=== PATIENT | male | born 1945 | race Caucasian/White ===

== ENCOUNTER → 2018-06-12 | Outpatient (CLI) | payer MEDICARE ==
--- NOTE | 2018-06-12 15:08 | KCIC ---
EXAMINATION: Magnetic resonance imaging (MRI) of the lumbar spine without contrast 06/12/2018 12:30 PM HISTORY: Chronic lower back pain with radicular symptoms TECHNIQUE: Multiplanar multi-weighted MRI of the lumbar spine was performed without intravenous contrast using the standard lumbar spine protocol. Contrast information: None administered. COMPARISON: MRI lumbar spine August 03, 2012 FINDINGS: Alignment of the lumbar spine appears maintained. Vertebral body heights are maintained. Modic type II endplate degenerative changes are identified posteriorly at L3-L4. There is moderate disc height loss at L3-L4 mild disc height loss at L2-L3 and L4-L5. There is disc desiccation at all levels of the lumbar spine. Conus medullaris terminates at L1. Distal spinal cord signal intensity is normal in all sequences. There is no acute fracture. Modic type II endplate degenerative changes are identified anteriorly at L5-S1 with mild anterior marginal osteophytosis. Abdominal aorta is normal in caliber. No suspicious sacral abnormalities identified. No suspicious retroperitoneal abnormality is identified. There is no hydronephrosis. L1-L2: Mild disc bulge. No neuroforaminal or spinal canal stenosis. L2-L3: There is a moderate disc bulge with mild facet arthropathy and ligamentum flavum infolding. There is moderate bilateral neuroforaminal stenosis. Mild spinal canal stenosis. L3-L4: There is moderate disc bulge. There is moderate left and mild right facet arthropathy. There is deformity of the left lamina which may reflect prior laminectomy changes. There is moderate bilateral neuroforaminal stenosis. No significant spinal canal stenosis. L4-L5: There is mild disc bulge. There is moderate facet arthropathy. There is mild bilateral neuroforaminal stenosis. No residual spinal canal stenosis. Correlate with any laminectomy changes at this level. L5-S1: There is mild disc bulge with left central annular fissure. There is moderate facet arthropathy, right greater than left. There is no significant neuroforaminal or spinal canal stenosis. IMPRESSION: Mild to moderate degenerative changes of the lumbar spine, as described in detail above. Electronically signed by: Kat Deal MD (06/12/2018 3:05 PM) [email or web address]
== END | disposition home or self-care (01) ==
LOC: KCIC MRI 12:06
PROVIDERS: ATTEND Internal Medicine
DX: M47.816 Spondylosis without myelopathy or radiculopathy, lumbar region (principal); M48.061 Spinal stenosis, lumbar region without neurogenic claudication; M51.27 Other intervertebral disc displacement, lumbosacral region; M12.88 Other specific arthropathies, not elsewhere classified, other specified site; M43.8X6 Other specified deforming dorsopathies, lumbar region
CPT/HCPCS: 72148

== ENCOUNTER → 2018-07-24 | Outpatient (CLI) | payer MEDICARE ==
[~2018-07-24] MED LIST: CONTRAST GIVEN. MC PRN; IOHEXOL 180 MG/ML 10 ML VIAL. IJ ONE; IOHEXOL 180 MG/ML 10 ML VIAL. ONE; LIDOCAINE WITH 8.4% SOD BICARB 3 ML DISP.SYRIN. INJ ONE
[2018-07-24 09:20] VITALS: BP 139/88
[2018-07-24 09:35] VITALS: BP 124/71
[2018-07-24 09:50] VITALS: BP 117/64
[2018-07-24 10:05] VITALS: BP 121/86
[2018-07-24 10:08] VITALS: BP 139/88
--- NOTE | 2018-07-24 10:10 | NUR ---
Discharge Note: LURDES ZARCO Discharge instructions and discharge home medications reviewed with Patient and a copy given. All questions have been answered and understanding verbalized. The following instructions and handouts were given: Myelogram Clean dry dressing to back Patient discharged to home with via ambulatory MICHELLE RN
--- NOTE | 2018-07-24 11:17 | RAD ---
Lumbar myelogram, 07/24/2018: HISTORY: Back pain and left leg pain, spinal stenosis, spondylolisthesis Under local anesthesia, aseptic conditions and fluoroscopic guidance a lumbar puncture was performed at the upper L3 level utilizing a 25-gauge Liset spinal needle. Good clear CSF flow was obtained following which 14 cc of Omnipaque 180 was injected into the thecal sac. The spinal needle was then removed and appropriate digital imaging performed. 13 fluoroscopic spot images were recorded. 4.7 minutes of fluoroscopy time was utilized. The patient tolerated the procedure well and was sent to CT in good condition. Following findings were delineated on the myelogram: 1. There are moderate anterior extradural defects at L2-3 and L3-4 with a mild anterior extradural defect at L4-5. There is mild associated narrowing of the AP diameter of the thecal sac at the L2-3 level. 2. Upright lateral views demonstrate only slight anterolisthesis at L5-S1. The underlying central spinal canal is widely patent. No significant instability is seen with flexion and extension. 3. There is symmetric opacification of the nerve root sleeves in the lower lumbar spine. CT of the lumbar spine-post myelogram, 07/24/2018: Multidetector CT imaging was performed with multiplanar reconstructions produced. The following findings are delineated: 1. No significant posterior disc bulge or protrusion is seen at L1-2. The central spinal canal and neural foramina are well maintained. 2. At L2-3 there is a vacuum disc phenomena with moderate broad-based posterior disc bulging and posterior spurring. There is mild posterior ligamentous thickening due to facet joint arthropathy. The thecal sac measures 9-10 mm in AP diameter at the midline. There is mild inferior foraminal narrowing bilaterally. 3. At L3-4 there is a vacuum disc phenomena with disc space narrowing and moderate posterior marginal spurring. There are moderate degenerative changes involving the facet joints with a laminectomy defect on the left. The thecal sac measures 11-12 mm in AP diameter at the midline. A small bubble of gas along the right anterolateral lateral margin of the thecal sac is related to the degenerated disc. There is only mild inferior foraminal narrowing bilaterally. 4. At L4-5 there is mild posterior marginal spurring more so on the right with minimal posterior disc bulging. There are moderate hypertrophic degenerative changes involving the facet joints. The central spinal canal is widely patent. There is mild bilateral foraminal narrowing. 5. At L5-S1 there is only minimal posterior annular bulging. There are moderate to severe degenerative changes involving both facet joints with vacuum phenomena at both facet joints. There is no spondylolisthesis in the supine position. The central spinal canal is well-preserved. There is mild bilateral foraminal narrowing. IMPRESSION: 1. Mild to moderate multilevel degenerative change as described above. 2. Borderline narrowing of the central spinal canal at L2-3. 3. Slight anterolisthesis at L5-S1, only in the upright position. PQRS Compliance Statement: One or more of the following individualized dose reduction techniques were utilized for this examination: 1. Automated exposure control 2. Adjustment of the mA and/or kV according to patient size 3. Use of iterative reconstruction technique
== END | disposition home or self-care (01) ==
LOC: RAD 07:30
PROVIDERS: ATTEND Neurological Surgery
DX: M48.07 Spinal stenosis, lumbosacral region (principal); M47.817 Spondylosis without myelopathy or radiculopathy, lumbosacral region; M12.88 Other specific arthropathies, not elsewhere classified, other specified site; M43.16 Spondylolisthesis, lumbar region; I10 Essential (primary) hypertension; Z88.2 Allergy status to sulfonamides
CPT/HCPCS: 72132; 72265; Q9965

== ENCOUNTER → 2018-09-04 | Outpatient (CLI) | payer MEDICARE ==
[2018-07-24 10:05] VITALS: BP 121/86
[~2018-09-04] MED LIST changes: +BUPIVACAINE MPF 0.25% 10 ML VIAL. ONE; -CONTRAST GIVEN. MC PRN; +HYDR25TA PO; -IOHEXOL 180 MG/ML 10 ML VIAL. IJ ONE; -LIDOCAINE WITH 8.4% SOD BICARB 3 ML DISP.SYRIN. INJ ONE; +PRAZ1CAP2 PO; +TRAZ-86 PO; +VENL75TA PO; +methylPREDNISolone ACETATE 40 MG/ML VIAL. ONE
--- NOTE | 2018-09-04 23:23 | PAIN ---
DATE OF SERVICE: 09/04/2018 INITIAL CONSULTATION FOR PAIN CLINIC CHIEF COMPLAINT: Low back and bilateral lower extremity pain, left greater than right. SECONDARY COMPLAINT: Right shoulder pain. HISTORY OF PRESENT ILLNESS: This is a 73-year-old male who presents with history of pain in the low back, bilateral lower extremities and left greater than right in the posterior gluteus, posterior thigh across the low back as well as the calves, more on the left side than the right, also right shoulder pain, which he reports is his chief complaint today. It has been going on for about 6 weeks as well as his low back. The patient reports he does have a history of lumbar surgery in 2010, which did well initially, but the pain has been gradually returning now and over the past 2 months or so, it is becoming much more noticeable with walking, standing, changing positions, better with sitting or lying down, does not awaken him from sleep at night significantly. No loss of bowel or bladder control, but does affect his ability to walk at times. The patient reports no recent therapies or other treatments currently. He is doing some exercises, stretching with his back and his arms. Again, the patient's shoulder shows significant pain with weightbearing, raising his arm over his head that is on the right side, but without any loss of strength and it becomes aching and worse at night, especially. The patient reports the pain in the low back is sharp, stabbing, throbbing, shooting, radiating to the lower extremities. Also, pain in the right shoulder which is sharp and radiating to the right upper extremity, mostly in the lateral aspect of the upper arm to the elbow. The patient reports no loss of motor function, significant fatigability with both of the legs, more on the left than right, in the right shoulder. The patient rates his disability from 0-10, 10 being the worst, is a 7 with family and home responsibilities, recreation, social activity, and sexual behavior and self-care and 6 with life support activities. PAST MEDICAL HISTORY: Significant for hypertension, history of malaria, arthritis, PTSD. PREVIOUS SURGERY: Includes left ankle surgery, right ankle surgery, lumbar laminectomy, tonsillectomy. CURRENT MEDICATIONS: Include daily baby aspirin, cyclobenzaprine, diclofenac, hydrocortisone ointment, hydroxyzine, ibuprofen, lisinopril, omeprazole, oxycodone, rosuvastatin, prazosin, venlafaxine and trazodone. ALLERGIES: THE PATIENT IS ALLERGIC TO SULFA. FAMILY HISTORY: Unknown as the patient was adopted. SOCIAL HISTORY: The patient does not drink alcohol, does not smoke, does not use any illegal, illicit or recreational drugs. He is and lives with his spouse, has one child, living at home, lives locally in the [place], [place]. REVIEW OF SYSTEMS: The patient's review of systems is positive for those items mentioned in the history of present illness. All systems reviewed and otherwise negative. It is complete, full and well documented on the patient's chart. PHYSICAL EXAMINATION: VITAL SIGNS: The patient's blood pressure is 143/84, pulse 87, respirations 16, temperature is 98.0 degrees Fahrenheit, height is 6 feet 0 inches, weight is 286 pounds. GENERAL: The patient is awake, alert, oriented, appropriate, very pleasant demeanor. HEENT: Head shows normocephalic, atraumatic. Extraocular movements are intact and symmetrical. Oral cavity: Mucous membranes moist and pink. Dentition intact. NECK: Shows anterior throat supple without palpable lymphadenopathy noted. Swallow reflex symmetrical. CHEST: Shows normal on inspection. Breath sounds are clear to auscultation bilaterally. HEART: Shows S1, S2 clear. No murmurs auscultated. ABDOMEN: Soft, nontender, nondistended. No palpable organomegaly is noted. No rebound or guarding demonstrated. BACK: Shows spine grossly in the midline. Normal-appearing thoracic kyphosis and minor flattening of lumbar lordotic curvature. Well-healed surgical scar noted. Lumbar paraspinous muscle shows symmetrical on inspection, with palpation shows some mild tenderness in the middle and lower distribution of paraspinous muscle, but are symmetrical without evidence of atrophy, hypertrophy, no trigger points, no radiation of pain, no tenderness over the spinous processes, sacrum or sacroiliac regions. The patient has good rotational motion of lumbar spine, both laterally greater than 10 degrees right and left as well as extension greater than 10 degrees and forward flexion at 45 degrees without significant increase in pain. EXTREMITIES: The patient's lower extremities show deep tendon reflexes 1+ in the patellar and tendo-calcaneus tendons. Motor exam is strong with 5/5 on the right and 4/5 on the left with dorsiflexion, extension, quadriceps and hamstring flexion. Peripheral pulses are 1+ posterior tibia. No peripheral edema is noted. Upper extremities show deep tendon reflexes 2+ in the biceps and triceps tendons. Motor exam is strong with poultry eviscerator strength rated 5/5 as is bicep and tricep flexion. Shoulder shrug is strong and intact without loss of strength on resistance bilaterally. The patient does have some significant pain over the posterior aspect of the acromioclavicular joint on the right side only with very significant pain with palpation, even to moderate extent, less so on the anterior aspect of the joint. The left side is nontender. The patient has full rotational motion of the shoulder joint, both with active and passive rotation. No loss of strength with shoulder shrug and resistance. No loss of strength with abduction of shoulder to 90 degrees and resistance. SKIN: Shows warm and dry, good turgor. No edema. No sores, rashes or bruising throughout. IMPRESSION: 1. This is a 73-year-old male with long history of low back pain, bilateral lower extremity pain, worse on the left than right in a radicular pattern. 2. Right acromioclavicular shoulder joint pain. 3. Myelogram and MRI scan of lumbar spine as noted. 4. Plain films of right shoulder is noted. 5. Hypertension. 6. Arthritis. PLAN: Options were discussed with the patient including conservative medical management, physical therapy, interventional techniques and he would like to pursue interventional techniques. He would like to have shoulder addressed first as this is his chief complaint. We discussed a right acromioclavicular joint injection using fluoroscopic guidance. The patient would like to proceed with this. Risks were then discussed including, but not limited to bleeding, infection, possibility of intravascular injection sequelae, spread of local anesthetic and numbness, side effects of steroid medication, exposure to fluoroscopy as well as poor results regarding pain control. The patient understands and wished to proceed. The patient will return to clinic in approximately 2 weeks. I will plan on lumbar epidural steroid injection on his return. DIAGNOSIS: Right shoulder joint pain with primary osteoarthritis. PROCEDURE: Right acromioclavicular joint. PROCEDURE: Right acromioclavicular joint injection using C-arm fluoroscopic guidance under sterile prep and drape using local anesthetic. MEDICATION INJECTED: Total of 40 mg Depo-Medrol plus a total of 3 mL of 0.25% bupivacaine and 1.5 mL of contrast. CONDITION AT DISCHARGE: Stable. The patient tolerated procedure well, had no complications. FANNY ESPITIA MD DR: BELLA/eugenia JOB#: [id number] / [id number] DIXIE Monteiro
== END ==
LOC: PNCL 12:40
PROVIDERS: ATTEND Anesthesiology
DX: M19.011 Primary osteoarthritis, right shoulder (principal); I10 Essential (primary) hypertension; Z98.890 Other specified postprocedural states; Z79.82 Long term (current) use of aspirin; Z88.1 Allergy status to other antibiotic agents
CPT/HCPCS: 20610; 77002; J1030; J3490; Q9965; 20605

== ENCOUNTER → 2018-09-19 | Outpatient (CLI) | payer MEDICARE ==
[2018-07-24 10:05] VITALS: BP 121/86
[~2018-09-19] MED LIST changes: -methylPREDNISolone ACETATE 40 MG/ML VIAL. ONE; +methylPREDNISolone ACETATE 80 MG/ML VIAL. ONE
--- NOTE | 2018-09-19 15:52 | PAIN ---
DATE OF SERVICE: 09/19/2018 DIAGNOSES: 1. Right shoulder joint pain with osteoarthritis in the acromioclavicular joint. 2. Lumbar radiculopathy with lumbar degenerative disk disease and post-lumbar laminectomy syndrome. HISTORY OF PRESENT ILLNESS: The patient is a 73-year-old male who returns for followup status post right acromioclavicular joint injection with about 40% improvement. The patient reports it lasted for several weeks, but continues to be improved, but it was much higher level about 50-60% initially. The patient reports now is about 30-40% improvement overall, but still increased use of his right arm with weightbearing, range of motion and lifting items with the right arm more comfortably, still have some significant pain, however, the patient reports it is an 8 on a scale of 10 at its worst over the past week, 6 on average, 0 at its least and it is 6 today. The patient reports it is aching, sharp, dull, shooting at times in the right shoulder itself, also some low back pain and pain in the lower extremities as previously. The patient reports no new motor or sensory deficits. Does not awaken him from sleep at night. He has been doing most of his daily activities with improved comfort of the right shoulder. PHYSICAL EXAMINATION: VITAL SIGNS: The patient's blood pressure 138/83, pulse 90, respirations 18, temperature 97.6 degrees Fahrenheit, height 6 feet, weight is 287 pounds. GENERAL: The patient is awake, alert, oriented, appropriate, very pleasant demeanor. HEENT: Shows normocephalic, atraumatic. The patient is wearing eyeglasses. Extraocular movements are intact and symmetrical. Oral cavity: Mucous membranes moist and pink. Dentition is intact. NECK: Shows anterior throat supple without palpable lymphadenopathy noted. Swallow reflex symmetrical. CHEST: Shows normal on inspection. Breath sounds are clear to auscultation bilaterally. HEART: Shows S1, S2 clear. ABDOMEN: Soft, nontender, nondistended. No palpable organomegaly is noted. No rebound or guarding demonstrated. BACK: The patient's back shows spine grossly in the midline. Normal appearing thoracic kyphosis and minor flattening of lumbar lordotic curvature. The patient's right shoulder shows good range of motion with full range both abduction, anterior and posterior displacement as well as reaching well above his head with his right hand without pain reported. With palpation; however, significant pain in the acromioclavicular joint and the posterior aspect of the AC joint with palpation, less so on the anterior aspect, but also tender on the anterior acromioclavicular joint as well. This is worse with putting direct pressure posteriorly as well as inferiorly along the joint itself. EXTREMITIES: The patient's upper extremities show deep tendon reflexes 2+ in the biceps and triceps tendons. Motor exam is 5/5 with appian bpm developer strength, bicep and tricep flexion and symmetrical. Peripheral pulses are 2+ in the radial distribution. No peripheral edema is noted bilaterally as well. Options were discussed with the patient. The patient's old chart was reviewed as his current medication regimen updated. Current review of systems updated today as well. We will proceed with a right repeat acromioclavicular joint injection using C-arm fluoroscopic guidance. Risks were again discussed including, but not limited to bleeding, infection, possibility of intravascular injection sequelae, spread of local anesthetic and numbness, side effects of steroid medication, exposure to fluoroscopy and poor results regarding pain control. The patient understands and wished to proceed. The patient will return to clinic in approximately 2 weeks for followup. He was counseled on return appointment, activity level and side effects to be aware of. DIAGNOSIS: Right acromioclavicular shoulder joint pain with osteoarthritis, right acromioclavicular joint. PROCEDURE: Right acromioclavicular joint injection using C-arm fluoroscopic guidance under sterile prep and drape using C-arm fluoroscopic guidance 25-gauge needle. Total medications injected was 3 mL of 0.25% bupivacaine and 80 mg Depo-Medrol and 1.5 mL of contrast. CONDITION AT DISCHARGE: Stable. The patient tolerated procedure well, had no complications. FANNY ESPITIA MD DR: BELLA/eugenia JOB#: [id number] / [id number]
== END ==
LOC: PNCL 12:41
PROVIDERS: ATTEND Anesthesiology
DX: M19.011 Primary osteoarthritis, right shoulder (principal); M51.16 Intervertebral disc disorders with radiculopathy, lumbar region; M96.1 Postlaminectomy syndrome, not elsewhere classified
CPT/HCPCS: 20605; 77002; J1040; J3490; Q9965

== ENCOUNTER → 2018-10-10 | Outpatient (CLI) | payer MEDICARE ==
[2018-07-24 10:05] VITALS: BP 121/86
--- NOTE | 2018-10-10 22:04 | PAIN ---
DATE OF SERVICE: 10/10/2018 PROGRESS NOTE FOR PAIN CLINIC DIAGNOSES: 1. Lumbar radiculopathy with lumbar degenerative disk disease and lumbar post-laminectomy syndrome. 2. Right shoulder joint pain with primary osteoarthritis, right acromioclavicular joint. HISTORY OF PRESENT ILLNESS: The patient is a 73-year-old male who returns for followup status post right acromioclavicular joint injection x2. The patient reports he is doing better about 30% overall with pain in his right shoulder, still painful with holding items, lifting weight with the arm to the side of his body on the right side as well as weightbearing with raising the arm up over his level of the shoulder. The patient reports pain is 8 on a scale of 10 at its worst in the past week, 5 on average, 0 at its least and is 0 today. The patient reports it is aching, dull, shooting at times, also some pain in the base of the neck and shoulder on the right side. The patient is scheduled for MRI scan of the cervical spine tomorrow and we will ask that for those results to our office as well. The patient reports it intermittently awakens him from sleep on the right shoulder, otherwise doing fairly well. No new motor or sensory deficits or other complaints. PHYSICAL EXAMINATION: VITAL SIGNS: The patient's blood pressure is 107/63, pulse 77, respirations are 18, temperature is 98.0 degrees Fahrenheit, height is 6 feet and weight is 286 pounds. GENERAL: The patient is awake, alert, oriented, appropriate, very pleasant demeanor. HEENT: Shows normocephalic, atraumatic. Extraocular movements are intact and symmetrical. Oral cavity: Mucous membranes moist and pink. Dentition is intact. NECK: Shows anterior throat supple without palpable lymphadenopathy noted. Swallow reflex symmetrical. CHEST: Shows normal on inspection. Breath sounds are clear. BACK: The patient's back shows spine grossly in the midline. The patient's shoulder shows right shoulder tenderness over the acromioclavicular joint, especially on the posterior aspect of the joint with some on the superior aspect and the anterior aspect as well, mostly posteriorly, though this is worse with weightbearing or pulling the arm to the side in a downward direction on the right side only. Left side is nontender with palpation or with weightbearing. The patient has full rotational motion of the shoulder actively and passively without ratcheting or crepitus. EXTREMITIES: Upper extremity deep tendon reflexes are 2+ in the biceps and triceps tendons. Motor exam is strong with user experience architect strength rated at 5/5 as is bicep and tricep flexion. Options were discussed with the patient. The patient's old chart was reviewed as his current medication regimen updated. Current review of systems updated today as well. We will proceed with a right acromioclavicular joint injection with fluoroscopic guidance today. Risks were again discussed including, but not limited to bleeding, infection, possibility of intravascular injection sequelae, spread of local anesthetic and numbness, exposure to fluoroscopy and poor results regarding pain control. The patient understands and wished to proceed. The patient will return to clinic in approximately 2 weeks for followup. He was counseled on return appointment, activity level and side effects to be aware of. DIAGNOSIS: Right acromioclavicular joint pain with primary osteoarthritis, right acromioclavicular shoulder joint. PROCEDURE: Right acromioclavicular joint injection using C-arm fluoroscopic guidance under sterile prep and drape using local anesthetic. Medication injected total of 2 mL of 0.25% bupivacaine and 80 mg of Depo-Medrol as well as 0.5 mL of contrast. CONDITION AT DISCHARGE: Stable. The patient tolerated the procedure well, had no complications. FANNY ESPITIA MD DR: BELLA/eugenia JOB#: [id number] / [id number]
== END ==
LOC: PNCL 14:07
PROVIDERS: ATTEND Anesthesiology
DX: M19.011 Primary osteoarthritis, right shoulder (principal); M51.16 Intervertebral disc disorders with radiculopathy, lumbar region; M96.1 Postlaminectomy syndrome, not elsewhere classified
CPT/HCPCS: 20605; 77002; J1040; J3490; Q9965

== ENCOUNTER → 2018-10-13 | Outpatient (CLI) | payer MEDICARE ==
[2018-07-24 10:05] VITALS: BP 121/86
[~2018-10-13] MED LIST changes: -BUPIVACAINE MPF 0.25% 10 ML VIAL. ONE; -IOHEXOL 180 MG/ML 10 ML VIAL. ONE; -methylPREDNISolone ACETATE 80 MG/ML VIAL. ONE
--- NOTE | 2018-10-13 15:49 | KCIC ---
CERVICAL SPINE WO CONTRAST History: Radiculopathy. Neck pain. Right shoulder pain. Technique: Multiplanar, multi sequential noncontrast MR imaging was performed of the cervical spine. Comparison: None Findings: Minimal grade 1 anterolisthesis C7 on T1 and T1 on T2. Otherwise, normal alignment. Normal vertebral body height. No fracture. No pathologic marrow replacing process. Normal appearance of the cervical spinal cord. No pathologic signal abnormality. C2-C3: Small posterior disc osteophyte complex. Indention of ventral thecal sac. No canal narrowing. No neuroforaminal narrowing. Moderate facet arthropathy. C3-C4: Posterior disc osteophyte complex eccentric to the right. Partial effacement of ventral CSF space. Mild right cord flattening. No canal narrowing. Uncovertebral and facet arthropathy. Mild bilateral neural foraminal narrowing. C4-C5: Posterior disc osteophyte complex. No canal narrowing. Uncovertebral and facet arthropathy. Moderate left and mild right neuroforaminal narrowing. C5-C6: Posterior disc osteophyte complex. No canal narrowing. Uncovertebral and facet arthropathy. Mild to moderate left neural foraminal narrowing. C6-C7: Posterior disc osteophyte complex. No canal narrowing. Uncovertebral and facet arthropathy on the right. Mild right neuroforaminal narrowing. No left neural foraminal narrowing. C7-T1: Posterior disc osteophyte complex. No canal or neuroforaminal narrowing. Impression: 1. Moderate multilevel cervical spondylosis most prominent C3-C4 with mild right cord flattening. No significant canal narrowing. 2. Multilevel neural foraminal narrowing most prominent C4-C5. Electronically signed by: Peter Davis DO (10/13/2018 3:46 PM) [email or web address]
== END | disposition home or self-care (01) ==
LOC: KCIC MRI 12:13
PROVIDERS: ATTEND Orthopaedic Surgery
DX: M47.812 Spondylosis without myelopathy or radiculopathy, cervical region (principal); M48.02 Spinal stenosis, cervical region; M25.78 Osteophyte, vertebrae
CPT/HCPCS: 72141

== ENCOUNTER → 2018-11-21 | Outpatient (CLI) | payer MEDICARE ==
[2018-07-24 10:05] VITALS: BP 121/86
[~2018-11-21] MED LIST changes: +IOHEXOL 180 MG/ML 10 ML VIAL. ONE; +methylPREDNISolone ACETATE 40 MG/ML VIAL. ONE; +methylPREDNISolone ACETATE 80 MG/ML VIAL. ONE
--- NOTE | 2018-11-21 09:07 | PAIN ---
DATE OF SERVICE: 11/21/2018 PROGRESS NOTE FOR PAIN CLINIC DIAGNOSES: 1. Right acromioclavicular joint pain with osteoarthritis. 2. Lumbar radiculopathy with lumbar degenerative disk disease, post-lumbar laminectomy syndrome. 3. Cervical radiculopathy with cervical degenerative disk disease and spondylosis. HISTORY OF PRESENT ILLNESS: The patient is a 73-year-old male who returns for followup status post right acromioclavicular joint injection x 3 with good results, but temporary and pain, still significant pain in his neck and shoulder on the right side. The patient has recently seen his neurosurgeon, Dr. De Dios. We had a cervical MRI that is showing some significant foraminal narrowing, most prominent at C4-C5 level and also C5-C6, C6-C7 with mild right neural foraminal narrowing and the right and left mild neural foramen at C4-C5 as well. The patient reports still significant pain in the right shoulder now more in the neck that he is noticing increasing with activity, weight with weightlifting, reaching over his head with his right arm, difficulty with sleeping at night occasionally. The patient reports the pain is a 7 on a scale of 10 at its worst over the past week, 5 on average, 0 at its least and is a 5 today. The patient reports it is in the base of the right neck and shoulder going into the triceps region in the back of the right arm as well as some weakness in this region also. The patient reports it is aching, sharp, shooting, radiating, on and off in intensity, worse with activity, better with resting. The patient reports no new motor or sensory deficits, no new changes. PHYSICAL EXAMINATION: VITAL SIGNS: The patient's blood pressure is 117/75, pulse 93, respirations 18, temperature 98.3 degrees Fahrenheit, height 6 feet, weight is 293 pounds. GENERAL: The patient is awake, alert, oriented, appropriate, very pleasant demeanor. HEENT: Shows normocephalic, atraumatic. Extraocular movements are intact and symmetrical. Oral cavity: Mucous membranes moist and pink. Dentition is intact. NECK: Shows anterior throat supple without palpable lymphadenopathy noted. Swallow reflex symmetrical. CHEST: Shows normal on inspection. Breath sounds clear to auscultation bilaterally. HEART: Shows S1, S2 clear. No murmurs auscultated. ABDOMEN: Soft, nontender, nondistended. No palpable organomegaly is noted. No rebound or guarding demonstrated. BACK: Shows spine grossly in the midline. Normal appearing thoracic kyphosis and cervical lordotic curvature. Cervical paraspinous muscle shows symmetrical on inspection, on palpation shows some moderate tenderness diffusely bilaterally going diffusely without significant radiation. The patient does show good rotational motion of cervical spine, both laterally greater than 45 degrees closer to 90 degrees, right and left lateral rotation as well as full extension, full forward flexion without significant pain reported. EXTREMITIES: The patient's upper extremities show deep tendon reflexes 2+ in the biceps and triceps tendons. Motor exam is strong with physician non invasive cardiologist strength rated at 5/5 as is biceps flexion, triceps flexion on the right; however, is approximately 3-4 on a scale of 5 and with loss of strength with resistance on the right tricep only. Peripheral pulses are 2+ radial distribution. No peripheral edema is noted bilaterally. Options were discussed with the patient. The patient's old chart was reviewed as his current medication regimen updated. Current review of systems updated today as well and we will proceed with a cervical epidural steroid injection today with fluoroscopic guidance. Risks were again discussed including, but not limited to bleeding, infection, possibility of epidural hematoma, subsequent neurological compromise, dural puncture, headaches, spinal cord and/or nerve damage, side effects of steroid medication and poor results regarding pain control. The patient understands and wished to proceed. The patient will return to clinic in approximately 2 weeks for followup. She was counseled on return appointment, activity level and side effects to be aware of. DIAGNOSIS: Cervical radiculopathy with cervical degenerative disk disease and cervical spondylosis. PROCEDURE: Cervical epidural steroid injection, translaminar approach C6-C7 level using C-arm fluoroscopic guidance under sterile prep and drape using local anesthetic. MEDICATION INJECTED: The patient received a total of 120 mg Depo-Medrol plus 5 mL of preservative-free normal saline and 2 mL of contrast. CONDITION AT DISCHARGE: Stable. The patient tolerated the procedure well, had no complications. FANNY ESPITIA MD DR: BELLA/eugenia JOB#: [id number] / [id number]
== END ==
LOC: PNCL 08:05
PROVIDERS: ATTEND Anesthesiology
DX: M50.123 Cervical disc disorder at C6-C7 level with radiculopathy (principal); M51.16 Intervertebral disc disorders with radiculopathy, lumbar region; M19.011 Primary osteoarthritis, right shoulder; M50.10 Cervical disc disorder with radiculopathy, unspecified cervical region; M96.1 Postlaminectomy syndrome, not elsewhere classified; M47.812 Spondylosis without myelopathy or radiculopathy, cervical region
CPT/HCPCS: 62321; J1030; J1040; Q9965; 62323

== ENCOUNTER → 2018-12-06 | Outpatient (CLI) | payer MEDICARE ==
[2018-07-24 10:05] VITALS: BP 121/86
--- NOTE | 2018-12-06 10:56 | PAIN ---
DATE OF SERVICE: 12/06/2018 PROGRESS NOTE FOR PAIN CLINIC DIAGNOSES: 1. Cervical radiculopathy with cervical degenerative disk disease and cervical spondylosis. 2. Lumbar radiculopathy with lumbar degenerative disk disease and post-lumbar laminectomy syndrome. 3. Right shoulder joint pain. HISTORY OF PRESENT ILLNESS: The patient is a 73-year-old male who returns for followup status post cervical epidural steroid injection x 1. The patient reports about 75% improvement after the first injection without any new deficits or complaints. The patient reports he is very pleased with his progress. He is able to drive his car, using his right arm to operate the shift liver and is quite pleased with increase in activity. The patient reports the pain is a 2 on a scale of 10 at its worst, on average 0 at its least and is 0 today. The patient reports it is aching and tight at times in the base of the neck and shoulder, but doing much better than it was. The patient reports he is sleeping better at night, does not awaken him from sleep. He also complains of significant low back pain with some pain in the low back and into the posterior gluteus bilaterally, which is more noticeable now that his right neck and shoulders, doing much better. The patient reports no new motor or sensory deficits, no new bowel or bladder incontinence or other complaints. PHYSICAL EXAMINATION: VITAL SIGNS: The patient's blood pressure is 146/74, pulse 103, respirations 18, temperature 97.7 degrees Fahrenheit, height is 6 feet, weight is 287 pounds. GENERAL: The patient is awake, alert, oriented, appropriate, very pleasant demeanor. HEENT: Head shows normocephalic, atraumatic. Extraocular movements are intact and symmetrical. Oral cavity; mucous membranes moist and pink. Dentition is intact. NECK: Shows anterior throat supple without palpable lymphadenopathy noted. Swallow reflex symmetrical. CHEST: Shows normal on inspection. Breath sounds clear bilaterally. HEART: Shows S1, S2 clear. No murmurs auscultated. ABDOMEN: Soft, nontender, nondistended. BACK: Shows spine grossly in the midline. Normal appearing thoracic kyphosis and lumbar lordotic curvature. Lumbar well-healed surgical scar is noted. Cervical paraspinous muscle shows symmetrical on inspection, on palpation shows some moderate tenderness diffusely, but only diffusely without radiation bilaterally. The patient has good rotational motion of the cervical spine, both right and left lateral as well as extension and flexion without significant pain reported. EXTREMITIES: Upper extremities show deep tendon reflexes 2+ biceps and triceps tendons. Motor exam is strong with 5/5 bag shaker strength, bicep and tricep flexion on the right is approximately 4 on a scale of 5, but intact. Peripheral pulses are 1+ posterior tibia. No peripheral edema is noted. Options were discussed with the patient. The patient's old chart was reviewed as his current medication regimen updated. Current review of systems updated today as well. We will proceed with a second in a series of cervical epidural steroid injection today with fluoroscopic guidance. Risks were again discussed including, but not limited to bleeding, infection, possibility of epidural hematoma, subsequent neurological compromise, dural puncture, headaches, spinal cord and/or nerve damage, side effects of steroid medication and poor results regarding pain control. The patient understands and wished to proceed. The patient will return to clinic in approximately 2 weeks for followup. He was counseled on return appointment, activity level and side effects to be aware of. DIAGNOSIS: Cervical radiculopathy with cervical degenerative disk disease and cervical spondylosis. PROCEDURE: Cervical epidural steroid injection, translaminar approach C6-C7 level using C-arm fluoroscopic guidance under sterile prep and drape using local anesthetic. MEDICATION INJECTED: A total of 120 mg Depo-Medrol plus 5 mL of preservative-free normal saline and 2 mL of contrast. CONDITION AT DISCHARGE: Stable. The patient tolerated procedure well, had no complications. FANNY ESPITIA MD DR: BELLA/eugenia JOB#: [id number] / [id number]
== END ==
LOC: PNCL 09:47
PROVIDERS: ATTEND Anesthesiology
DX: M50.123 Cervical disc disorder at C6-C7 level with radiculopathy (principal); M51.16 Intervertebral disc disorders with radiculopathy, lumbar region; M96.1 Postlaminectomy syndrome, not elsewhere classified
CPT/HCPCS: 62321; J1030; J1040; Q9965

== ENCOUNTER → 2018-12-27 | Outpatient (CLI) | payer MEDICARE ==
[2018-07-24 10:05] VITALS: BP 121/86
--- NOTE | 2018-12-27 11:50 | PAIN ---
DATE OF SERVICE: 12/27/2018 PROGRESS NOTE FOR PAIN CLINIC DIAGNOSES: 1. Cervical radiculopathy with cervical degenerative disk disease and cervical spondylosis. 2. Lumbar radiculopathy with lumbar degenerative disk disease and post-lumbar laminectomy syndrome. HISTORY OF PRESENT ILLNESS: The patient is a 73-year-old male, who returns for followup status post cervical epidural steroid injections x 2. The patient reports near 100% improvement with his neck and right upper extremity. His main complaint is low back and left lower extremity pain which he has had for some time and has had some lumbar surgery as well in the past, but it has been flaring up now, but he is almost doing much better. We discussed working on his radicular symptoms in his low back. The patient reports still significant pain in low back radiating to the posterior gluteus on the left side, posterior thigh, posterior calf, aching, sharp, tight, shooting, radiating, becoming more constant with walking, standing, and changing positions. The patient reports it is a 9 on a scale of 10 at its worst over the past week 5-6 on average, 3 at its least and is a 5 today. The patient reports no new motor or sensory deficits. He reports much better with sitting or lying down, does not awaken him from sleep at night. PHYSICAL EXAMINATION: VITAL SIGNS: The patient's blood pressure 125/90, pulse 93, respirations 18, temperature 98.9 degrees Fahrenheit. Height is 6 feet, weight is 291 pounds. GENERAL: The patient is awake, alert, oriented, appropriate, very pleasant demeanor. HEENT: Shows normocephalic, atraumatic. Extraocular movements are intact and symmetrical. Oral cavity: Mucous membranes moist and pink. Dentition is intact. NECK: Shows anterior throat supple without palpable lymphadenopathy noted. Swallow reflex symmetrical. CHEST: Shows normal on inspection. Breath sounds clear to auscultation bilaterally. HEART: Shows S1, S2 clear. No murmurs auscultated. ABDOMEN: Soft, nontender, nondistended. No palpable organomegaly is noted. No rebound or guarding demonstrated. BACK: Shows spine grossly in the midline. Normal appearing thoracic kyphosis, cervical lordotic curvature and lumbar lordotic curvature. Cervical paraspinous muscle shows symmetrical on inspection, with palpation shows some mild tenderness, but only diffusely in the inferior aspect of the cervical paraspinous muscles, slightly more on the right than the left, but full rotational motion of the cervical spine without difficulty. Lumbar spine shows well-healed surgical scar. Lumbar paraspinous muscle shows symmetrical on inspection, on palpation shows some moderate tenderness diffusely bilaterally, but only diffusely without radiation. The patient shows good rotational motion of lumbar spine as well without difficulty or pain reported. EXTREMITIES: Lower extremities show deep tendon reflexes at 1+ in the patellar and tendo calcaneus tendons. Motor exam is strong with 5/5 dorsiflexion, extension, quadriceps and hamstring flexion symmetrical. Peripheral pulses are 1+ posterior tibia. No peripheral edema is noted. Options were discussed with the patient. The patient's old chart was reviewed. His current medication regimen updated. Current review of systems updated today as well. We will proceed with a lumbar epidural steroid injection today with fluoroscopic guidance. Risks were again discussed including, but not limited to bleeding, infection, possibility of epidural hematoma, subsequent neurological compromise, dural puncture, headaches, spinal cord and/or nerve damage, side effects of steroid medication and poor results regarding pain control. The patient understands and wished to proceed. The patient will return to clinic in approximately 2 weeks for followup, was counseled on return appointment, activity level and side effects to be aware of. DIAGNOSES: Lumbar radiculopathy with lumbar degenerative disk disease and lumbar post-laminectomy syndrome. PROCEDURE: Lumbar epidural steroid injection, translaminar approach at L5-S1 level using C-arm fluoroscopic guidance under sterile prep and drape using local anesthetic. MEDICATION INJECTED: A total of 120 mg of Depo-Medrol plus 10 mL of preservative-free normal saline and 2 mL of contrast. CONDITION AT DISCHARGE: Stable. The patient tolerated the procedure well, had no complications. FANNY ESPITIA MD DR: BELLA/eugenia JOB#: [id number] / [id number]
== END ==
LOC: PNCL 09:55
PROVIDERS: ATTEND Anesthesiology
DX: M51.16 Intervertebral disc disorders with radiculopathy, lumbar region (principal); M96.1 Postlaminectomy syndrome, not elsewhere classified; M50.10 Cervical disc disorder with radiculopathy, unspecified cervical region; M47.812 Spondylosis without myelopathy or radiculopathy, cervical region
CPT/HCPCS: 62323; J1030; J1040; Q9965

== ENCOUNTER → 2019-03-28 | Outpatient (CLI) | payer MEDICARE ==
[2018-07-24 10:05] VITALS: BP 121/86
[~2019-03-28] MED LIST changes: +ASPI81TA50 PO; +CRESTOR40 MG PO; +CYCL10TA2 PO; +DICL100G24 TP; +IBUP-1060 PO; -IOHEXOL 180 MG/ML 10 ML VIAL. ONE; +LISI-334 PO; +OMEP20CA16 PO; +OXYC1TAB15 PO; +TRAZ-123 PO; -TRAZ-86 PO; -methylPREDNISolone ACETATE 40 MG/ML VIAL. ONE; -methylPREDNISolone ACETATE 80 MG/ML VIAL. ONE
--- NOTE | 2019-03-28 21:54 | PN ---
DATE: 03/28/2019 PROGRESS NOTE FOR PAIN CLINIC DIAGNOSES: 1. Cervical radiculopathy with cervical degenerative disk disease and cervical spondylosis. 2. Lumbar radiculopathy with lumbar degenerative disk disease and post-lumbar laminectomy syndrome. HISTORY OF PRESENT ILLNESS: The patient a 73-year-old male who returns for followup status post both cervical epidural steroid injections and lumbar epidural steroid injection. The patient reports his neck is doing much better, near 100% improvement in the neck and right upper extremity pain. Main complaint is back and left lower extremity pain. The patient reports it is increasing. His most recent injection was 12/27, had a lumbar epidural steroid injection at that time, which did very well with about a 75% improvement initially, now about 50% improvement, but still beginning more noticeable and becoming more painful in the left leg, posterior gluteus, posterior lateral thigh, and posterior calf. The patient reports an 8 on a scale of 10 at its worst over the past week, 7 on average, 2 at its least and is a 7 today. The patient reports it is aching type, shooting, radiating with walking, standing, changing positions. The patient reports no new motor or sensory deficits, no bowel or bladder incontinence. PHYSICAL EXAMINATION: VITAL SIGNS: The patient's blood pressure 124/81, pulse 94, respirations are 18, temperature is 98.1 degrees Fahrenheit, height is 6 feet, weight is 301 pounds. GENERAL: The patient is awake, alert, oriented, appropriate, very pleasant demeanor. The patient is accompanied by his spouse. HEENT: Shows normocephalic, atraumatic. Extraocular movements are intact and symmetrical. Oral cavity: Mucous membranes are moist and pink. Dentition is intact. NECK: Shows anterior throat supple without palpable lymphadenopathy noted. Swallow reflex symmetrical. CHEST: Shows normal on inspection. Breath sounds clear. HEART: Shows S1, S2 clear. ABDOMEN: Obese, soft, nontender, nondistended. BACK: Shows spine grossly in the midline. Cervical paraspinous muscle shows symmetrical on inspection with palpation shows some mild tenderness, but only diffusely with full rotational motion of cervical spine, both laterally as well as extension and flexion without difficulty. Lumbar paraspinous muscle shows symmetrical on inspection with normal appearing lumbar lordotic curvature with palpation shows some moderate tenderness diffusely in the low lumbar distribution only, but without radiation. The patient has good rotation of the lumbar spine as well, both laterally as well as extension and flexion without significant increase in pain. EXTREMITIES: The patient's upper extremities show deep tendon reflexes at 2+ in the biceps, triceps tendons. Motor exam is strong with 5/5 senior power plant operator strength, bicep and tricep flexion. Lower extremities show deep tendon reflexes 1+ in the patellar and tendo calcaneus tendons. Motor exam is strong with 5/5 dorsiflexion, extension, quadriceps and hamstring flexion and equal. Options were discussed with the patient. The patient's old chart was reviewed as his current medication regimen updated. Current review of systems updated today as well. We will wait for 6 months labs from his first injection for insurance requirements regulating epidural steroid injections, which will be 05/22. The patient will be given a Medrol Dosepak in the meantime with instructions, side effects to be aware of discussed. We will try to see if this is able to decrease the pain to some extent. The patient will continue with exercising, stretching and strengthening and encouraged him to maintain walking activities as tolerated. The patient will follow up in May or sooner as necessary. FANNY ESPITIA MD DR: BELLA/eugenia JOB#: [id number] / [id number]
== END | disposition home or self-care (01) ==
LOC: PNCL 11:04
PROVIDERS: ATTEND Anesthesiology
DX: M50.10 Cervical disc disorder with radiculopathy, unspecified cervical region (principal); M51.16 Intervertebral disc disorders with radiculopathy, lumbar region; M96.1 Postlaminectomy syndrome, not elsewhere classified; M48.02 Spinal stenosis, cervical region; E66.9 Obesity, unspecified
CPT/HCPCS: G0463

== ENCOUNTER → 2019-06-04 | Outpatient (CLI) | payer MEDICARE ==
[2018-07-24 10:05] VITALS: BP 121/86
[~2019-06-04] MED LIST changes: +IOHEXOL 180 MG/ML 10 ML VIAL. ONE; +methylPREDNISolone ACETATE 40 MG/ML VIAL. ONE; +methylPREDNISolone ACETATE 80 MG/ML VIAL. ONE
--- NOTE | 2019-06-04 13:14 | PAIN ---
DATE OF SERVICE: 06/04/2019 PROGRESS NOTE FOR PAIN CLINIC DIAGNOSES: 1. Lumbar radiculopathy with lumbar degenerative disk disease and lumbar post-laminectomy syndrome. 2. Cervical radiculopathy with cervical degenerative disk disease, cervical spondylosis. 3. Right shoulder pain with osteoarthritis. HISTORY OF PRESENT ILLNESS: The patient is a 73-year-old male who returns for followup status post cervical and lumbar epidural steroid injections. The patient most recently had a lumbar epidural steroid injection on 12/27/2018, did very well after the injection with about 75% improvement. The patient reports that his left leg and low back is starting to hurt again, still doing fairly well in the neck and shoulders and the right upper extremity. His left shoulder has some significant pain as well. The patient reports his main complaint, however, is low back and left lower extremity pain with pain radiating to posterior gluteus, posterior thigh, posterior calf, worse with walking, standing, changing positions, better with sitting or lying down, but generally does not awaken him from sleep at night. The patient reports it is aching and dull, tight, shooting into the leg, radiating, becoming more constant, but on and off in intensity and again better with sitting or lying down, worse with walking. The patient reports it is an 8 on a scale of 10 at its worst, 5 on average, 2 at its least and is a 5 today. The patient reports no new motor or sensory deficits, no new bowel or bladder incontinence or other complaints. PHYSICAL EXAMINATION: VITAL SIGNS: The patient's blood pressure 129/89, pulse 96, respirations are 18, temperature 98.3 degrees Fahrenheit, height 6 feet, weight is 302 pounds. GENERAL: The patient is awake, alert, oriented, appropriate, very pleasant demeanor. HEENT: Shows normocephalic, atraumatic. Extraocular movements are intact and symmetrical. Oral cavity: Mucous membranes moist and pink. Dentition is intact. NECK: Shows anterior throat supple without palpable lymphadenopathy noted. Swallow reflex symmetrical. CHEST: Shows normal on inspection. Breath sounds clear bilaterally. HEART: Shows S1, S2 clear. No murmurs auscultated. ABDOMEN: Soft, nontender, nondistended. BACK: Shows spine grossly in the midline. Normal appearing thoracic kyphosis and minor flattening of lumbar lordotic curvature. Well-healed surgical scar noted. Lumbar paraspinous muscle shows symmetrical on inspection, on palpation shows some moderate tenderness diffusely bilaterally going diffusely without significant radiation. The patient shows good rotational motion of lumbar spine, both laterally as well as extension and flexion without difficulty. EXTREMITIES: Lower extremities show deep tendon reflexes at 1+ patellar and tendo calcaneus tendons. Motor exam is strong with 5/5 dorsiflexion, extension, quadriceps and hamstring flexion symmetrical. Peripheral pulses are 1+ posterior tibia. No peripheral edema bilaterally. Options were discussed with the patient. The patient's old chart was reviewed as his current medication regimen updated. Current review of systems updated today as well. We will proceed with a lumbar epidural steroid injection today with fluoroscopic guidance. Risks were again discussed including, but not limited to bleeding, infection, possibility of epidural hematoma, subsequent neurological compromise, dural puncture, headaches, spinal cord and/or nerve damage, side effects of steroid medication and poor results regarding pain control. The patient understands and wished to proceed. The patient will return to clinic in approximately 2 weeks for followup. He was counseled as to return appointment, activity level and side effects to be aware of. DIAGNOSIS: Lumbar radiculopathy with lumbar degenerative disk disease and lumbar post-laminectomy syndrome. PROCEDURE: Lumbar epidural steroid injection, translaminar approach L5-S1 level using C-arm fluoroscopic guidance under sterile prep and drape using local anesthetic. MEDICATION INJECTED: A total of 120 mg Depo-Medrol plus 10 mL of preservative-free normal saline and 2 mL of contrast. CONDITION AT DISCHARGE: Stable. The patient tolerated the procedure well, had no complications. FANNY ESPITIA MD DR: BELLA/eugenia JOB#: [id number] / [id number]
== END ==
LOC: PNCL 12:20
PROVIDERS: ATTEND Anesthesiology
DX: M51.16 Intervertebral disc disorders with radiculopathy, lumbar region (principal); M50.10 Cervical disc disorder with radiculopathy, unspecified cervical region; M96.1 Postlaminectomy syndrome, not elsewhere classified; M47.812 Spondylosis without myelopathy or radiculopathy, cervical region; M19.011 Primary osteoarthritis, right shoulder
CPT/HCPCS: 62323; J1030; J1040; Q9965

== ENCOUNTER → 2019-06-18 | Outpatient (CLI) | payer MEDICARE ==
[2018-07-24 10:05] VITALS: BP 121/86
--- NOTE | 2019-06-18 11:49 | PAIN ---
DATE OF SERVICE: 06/18/2019 PROGRESS NOTE FOR PAIN CLINIC DIAGNOSES: 1. Lumbar radiculopathy with lumbar degenerative disk disease and lumbar post-laminectomy syndrome. 2. Cervical radiculopathy with cervical degenerative disk disease and cervical spondylosis. 3. Right shoulder joint pain. HISTORY OF PRESENT ILLNESS: The patient is a 73-year-old male, who returns for followup status post both cervical epidural steroid injection and lumbar epidural steroid injection. The patient did very well with each of these. The patient reports his last injection of his lumbar injection with about 75% improved for the first month. The patient reports still significant pain in the back and the left lower extremity, but much improved. He has been walking with greater ease and comfort, traveling with greater ease, driving his car, which is a manual transmission with clutch with his left leg much more comfortably. The patient reports he still has some pain in the area in the back of the gluteus, posterior thigh, posterior calf, but again, significantly improved, although still there. The patient reports it is noticeable with walking greater distances, but he has been increasing his distance walking with much greater ease and comfort as well as doing household activities and sleeping better at night. The patient reports no new motor or sensory deficits, no new bowel or bladder incontinence or other complaints. PHYSICAL EXAMINATION: VITAL SIGNS: The patient's blood pressure 140/90, pulse 85, respirations 20, temperature 98.2 degrees Fahrenheit, height 6 feet, weight is 303 pounds. GENERAL: The patient is awake, alert, oriented, appropriate, very pleasant demeanor. HEENT: Shows normocephalic, atraumatic. Extraocular movements are intact and symmetrical. Oral cavity: Mucous membranes moist and pink; dentition is intact. NECK: Shows anterior throat supple without palpable lymphadenopathy noted. Swallow reflex symmetrical. CHEST: Shows normal on inspection. Breath sounds are clear bilaterally. HEART: Shows S1, S2 clear. No murmurs auscultated. ABDOMEN: Soft, nontender and nondistended. BACK: Shows spine grossly in the midline, normal-appearing thoracic kyphosis and some flattening of lumbar lordotic curvature. Well-healed surgical scar noted. Lumbar paraspinous musculature shows symmetrical on inspection, on palpation shows some moderate tenderness diffusely bilaterally, but only diffusely without significant radiation. EXTREMITIES: The patient's lower extremities show deep tendon reflexes are 2+ in the patellar, 1+ in the tendo-calcaneus tendons. Motor exam is strong with 5/5 dorsiflexion, extension, quadriceps and hamstring flexion, symmetrical. Peripheral pulses are 1+ bilaterally. No peripheral edema is noted. Options were discussed with the patient. The patient's old chart was reviewed as his current medication regimen updated. Current review of systems updated today as well. We will proceed with a second in a series of lumbar epidural steroid injection today with fluoroscopic guidance. Risks were again discussed including, but not limited to bleeding, infection, possibility of epidural hematoma, subsequent neurological compromise, dural puncture, headaches, spinal cord and/or nerve damage, side effects of steroid medication and poor results regarding pain control. The patient understands and wished to proceed. The patient will return to clinic in approximately 2 weeks for followup. He was counseled as to the return appointment, activity level and side effects to be aware of. DIAGNOSIS: Lumbar radiculopathy with lumbar degenerative disk disease and lumbar post-laminectomy syndrome. PROCEDURE: Lumbar epidural steroid injection, translaminar approach, L5-S1 level, using C-arm fluoroscopic guidance under sterile prep and drape using local anesthetic. MEDICATIONS INJECTED: A total of 120 mg of Depo-Medrol plus 10 mL of preservative-free normal saline and 2 mL of contrast. CONDITION AT DISCHARGE: Stable. The patient tolerated the procedure well, had no complications. FANNY ESPITIA MD DR: BELLA/eugenia JOB#: [id number] / [id number]
== END ==
LOC: PNCL 10:47
PROVIDERS: ATTEND Anesthesiology
DX: M51.16 Intervertebral disc disorders with radiculopathy, lumbar region (principal); M96.1 Postlaminectomy syndrome, not elsewhere classified; M50.10 Cervical disc disorder with radiculopathy, unspecified cervical region; M47.812 Spondylosis without myelopathy or radiculopathy, cervical region
CPT/HCPCS: 62323; J1030; J1040; Q9965

== ENCOUNTER → 2019-09-12 | Outpatient (CLI) | payer MEDICARE ==
[2018-07-24 10:05] VITALS: BP 121/86
--- NOTE | 2019-09-12 11:30 | PDOC ---
Progress Note - Pain Clinic Date of Service: DOS: DATE: 09/12/19 TIME: 11:25 Diagnosis: Dx: Lumbar to colopathy with lumbar degenerative disc disease and post lumbar laminectomy syndrome Cervical idiopathy the cervical degenerative disc disease cervical spondylosis Bilateral shoulder joint pain with osteoarthritis History or Present Illness: HPI: Mr. Rader 74-year male returns follow-up status post lumbar procedure injection x2 patient reports about 75% initially but now down about 20% improvement last injection was on June 18, 2019 patient did very well initially afterwards with better distance walking doing household activities try with greater ease and comfort patient reports that is getting worse now the pain low back rating left lower extremity mostly the posterior gluteus posterior thigh some the posterior calf and lateral calf on the left side as well worse with walking standing changing positions patient reports is aching dull tight shooting tingling radiating at times but on and off in intensity better with sitting or laying down generally does not awaken him from sleep at night. Patient ports no new motor or sensory deficits no new bowel or bladder incontinence or other complaints. Describes pain is an 8 on a scale of 10 at its worst 7 on average and 3 at its least over the past week and is a 7 today. Physical Exam: VS: Pressure 144/113 pulse 98 respirations 20 temperature 98.5 F height is 6 foot weight is 304 pounds PE: PHYSICAL EXAMINATION: GENERAL: The patient is awake, alert, oriented, appropriate, very pleasant demeanor HEENT: Shows normocephalic, atraumatic. Extraocular movements are intact and symmetrical. Oral cavity: Mucous membranes moist and pink. Dentition is intact. NECK: Shows anterior throat supple without palpable lymphadenopathy noted. Swallow reflex symmetrical. CHEST: Shows normal on inspection. Breath sounds are clear bilaterally. HEART: Shows S1, S2 clear. No murmurs auscultated. ABDOMEN: Soft, nontender, nondistended obese. No palpable organomegaly is noted. No rebound or guarding demonstrated. BACK: Shows spine grossly in the midline. Normal-appearing cervical lordotic curvature. There is slightly increased thoracic kyphosis, some minor flattening of the lumbar lordotic curvature. Lumbar paraspinous muscles show symmetrical on inspection, on palpation shows some moderate tenderness diffusely throughout the upper, middle and lower distribution of the paraspinous muscles bilaterally without specific trigger points, without radiation of pain. The patient has good rotational motion of the lumbar spine, both laterally as well as extension and flexion without significant difficulty. No tenderness over the spinous processes, sacrum or sacroiliac regions. EXTREMITIES: Lower extremities show deep tendon reflexes 1+ in the patellar and tendo calcaneus tendons. Motor exam is 5 on a scale of 5 with right dorsiflexi on, extension, quadriceps and hamstring flexion and 5/5 on the left. Peripheral pulses are 1+ posterior tibial. No peripheral edema is noted bilaterally. Lower extremities are warm and dry to touch, equal in color and appearance. Straight leg raise noted to be positive on the right about 40 degrees, left side is mildly positive at 40 degrees. Gaenslen's and Guevara's maneuvers are negative as well. The patient is able to stand but still favors the right greater than left lower extremity with ambulation and as needed use of the arms of the chair to help him get up from a seated position.. SKIN: Shows warm and dry, good turgor. No edema. No sores, rashes or bruising throughout. Optios were discussed with the patient. The patient's ols chart was reviewed and current medication regimen updated. [] Procedure: Procedure: Options discussed with patient patient will chart reviewed his his current medication regimen updated current review of systems updated today as well and we will proceed with a third in the series lumbar epidural steroid injections today. Risks are discussed including but not limited to bleeding infection possibility of epidural hematoma subsequent neurological compromise dural puncture headache spinal cord and or nerve damage side effects steroid medication and portals chronic pain control. Patient understands wishes to proceed. Medication Injected: Med Injected: Procedure is lumbar epidural steroid injection under local anesthetic using sterile prep and drape at the L5-S1 level using C-arm fluoroscopic guidance in both AP and lateral views medications injected is 120 mg Depo-Medrol + 2 mL preservative-free normal saline and 2 mL Isovue for contrast- condition at discharge is stable patient tolerated procedure well had no complications. Condition at Discharge: Condition at Discharge: Patient return to clinic in approximately 2 weeks for follow-up was counseled to return appointment activity level and side effects to be aware of. FANNY ESPITIA MD Sep 12, 2019 11:30
== END | disposition home or self-care (01) ==
LOC: PNCL 10:28
PROVIDERS: ATTEND Anesthesiology
DX: M51.16 Intervertebral disc disorders with radiculopathy, lumbar region (principal); M50.10 Cervical disc disorder with radiculopathy, unspecified cervical region; M19.012 Primary osteoarthritis, left shoulder; M19.011 Primary osteoarthritis, right shoulder; M47.892 Other spondylosis, cervical region; Z88.2 Allergy status to sulfonamides; Z79.82 Long term (current) use of aspirin; Z79.899 Other long term (current) drug therapy
CPT/HCPCS: 62323; J1030; J1040; Q9965

== ENCOUNTER → 2019-10-30 | Outpatient (CLI) | payer MEDICARE ==
[2018-07-24 10:05] VITALS: BP 121/86
[~2019-10-30] MED LIST changes: -IOHEXOL 180 MG/ML 10 ML VIAL. ONE; -methylPREDNISolone ACETATE 40 MG/ML VIAL. ONE; -methylPREDNISolone ACETATE 80 MG/ML VIAL. ONE
--- NOTE | 2019-10-30 11:29 | PDOC ---
Progress Note - Pain Clinic Date of Service: DOS: DATE: 10/30/19 TIME: 11:25 Diagnosis: Dx: Lumbar radiculopathy with lumbar degenerative disc disease and lumbar postlaminectomy syndrome Cervical radiculopathy with cervical degenerative disc disease and cervical spondylosis History or Present Illness: HPI: 74-year male returns follow-up status post both cervical and lumbar epidural steroid injection patient reports he did very well with the injections but is short-lived and 50% improvement overall since his last visit which was a lumbar epidural steroid injection on Plavix 50,020 patient reports pain is returning down the low back and into the left greater than right lower extremity posterior gluteus posterior thigh posterior calf worse with walking standing changing positions he is having difficulty walking because the pain is been putting on extra weight because of the lack of ability to exercise. Patient ports is a 7 on scale 10 is worse over the past week for an average 0 at its least is a 4 today patient was aching dull tight alternating radiating the left leg as noted. Patient reports no new motor or sensory deficits no new bowel or bladder i ncontinence or other complaints. Physical Exam: VS: Blood pressure is 151/110 pulse 101 respirations 18 temperature 90.7 F height is 6 foot weight is 301 pounds PE: PHYSICAL EXAMINATION: GENERAL: The patient is awake, alert, oriented, appropriate, very pleasant demeanor, patient accompanied by his spouse. HEENT: Shows normocephalic, atraumatic. Extraocular movements are intact and symmetrical. Oral cavity: Mucous membranes moist and pink. NECK: Shows anterior throat supple without palpable lymphadenopathy noted. Swallow reflex symmetrical. CHEST: Shows normal on inspection. Breath sounds are clear bilaterally. HEART: Shows S1, S2 clear. No murmurs auscultated. ABDOMEN: Soft, nontender, nondistended, obese. No palpable organomegaly is noted. No rebound or guarding demonstrated. BACK: Shows spine grossly in the midline. Normal-appearing cervical lordotic curvature. There is slightly increased thoracic kyphosis, some minor flattening of the lumbar lordotic curvature. Lumbar paraspinous muscles show symmetrical on inspection, on palpation shows some moderate tenderness diffusely throughout the upper, middle and lower distribution of the paraspinous muscles bilaterally, but without specific trigger points, without radiation of pain. The patient has good rotational motion of the lumbar spine, both laterally as well as extension and flexion without significant difficulty. No tenderness over the spinous processes, sacrum or sacroiliac regions. EXTREMITIES: Lower extremities show deep tendon reflexes 1+ in the patellar and tendo calcaneus tendons. Motor exam is 5 on a scale of 5 with right dorsiflexion, extension, quadriceps and hamstring flexion and 5/5 on the left. Peripheral pulses are 1+ posterior tibial. No peripheral edema is noted bilaterally. Lower extremities are warm and dry to touch, equal in color and appearance. SKIN: Shows warm and dry, good turgor. No edema. No sores, rashes or bruising throughout. Procedure: Procedure: Options were discussed with patient. patient's old chart was reviewed, current medication regimen updated, current review of systems updated today as well. We discussed the potential of a spinal cord stimulator and patient was given some information to do some research on his own investigate this however he reports that the injections have not doing very well recently his neurosurgeon was questioning whether a stimulator might be appropriate for him. Patient will review the information and will have him return in approximately 3 weeks for lumbar epidural steroid injection at that time. We did discuss spinal cord stimulator in great detail and if other modalities or no longer helpful this may be an option for him in the future. Patient understands and will follow-up as scheduled Medication Injected: Med Injected: None Condition at Discharge: Condition at Discharge: Condition at discharge is stable. FANNY ESPITIA MD Oct 30, 2019 11:29
== END | disposition home or self-care (01) ==
LOC: PNCL 10:20
PROVIDERS: ATTEND Anesthesiology
DX: M51.16 Intervertebral disc disorders with radiculopathy, lumbar region (principal); M96.1 Postlaminectomy syndrome, not elsewhere classified; M50.10 Cervical disc disorder with radiculopathy, unspecified cervical region; M47.892 Other spondylosis, cervical region; Z88.2 Allergy status to sulfonamides; Z79.82 Long term (current) use of aspirin; Z79.899 Other long term (current) drug therapy
CPT/HCPCS: G0463

== ENCOUNTER → 2019-12-05 | Outpatient (CLI) | payer MEDICARE ==
[2018-07-24 10:05] VITALS: BP 121/86
[~2019-12-05] MED LIST changes: +IOHEXOL 180 MG/ML 10 ML VIAL. ONE; +METF500T16 PO; +methylPREDNISolone ACETATE 40 MG/ML VIAL. ONE; +methylPREDNISolone ACETATE 80 MG/ML VIAL. ONE
--- NOTE | 2019-12-05 12:23 | PDOC ---
Progress Note - Pain Clinic Date of Service: DOS: DATE: 12/05/19 TIME: 12:19 Diagnosis: Dx: Lumbar radiculopathy with lumbar degenerative disease and lumbar postlaminectomy syndrome Cervical radiculopathy with cervical degenerative disc disease and cervical spondylosis Bilateral acromioclavicular joint osteoarthritis History or Present Illness: HPI: 74-year-old male returns follow-up status post lumbar epidural steroid injections x3 most recently September 12, 2019 patient did very well about 50% improvement after the injection the pain low back left lower extremity. Patient ports pain returning now in the low back radiating the posterior gluteus pos terior thigh posterior calf on the left side rated as an 8 on scale 10 is worse over the past week 6 on average 1 its least is a 6 today patient reports is aching and tight shooting radiating can be constant at times worse with walking standing changing positions wakes him sleep occasionally but not most nights initially he was doing much better distance walking doing household activities traveling with greater ease and comfort now the pain is returning as noted. Patient reports no new motor or sensory deficits no new bowel or bladder incontinence or other complaints. Physical Exam: VS: Pressure is 128/81 pulse 88 respirations 16 temperature 99.0 F height is 6 foot weight is 300 pounds PE: PHYSICAL EXAMINATION: GENERAL: The patient is awake, alert, oriented, appropriate, very pleasant demeanor, patient accompanied by his spouse HEENT: Shows normocephalic, atraumatic. Extraocular movements are intact and symmetrical. Oral cavity: Mucous membranes moist and pink. Dentition is intact. NECK: Shows anterior throat supple without palpable lymphadenopathy noted. Swallow reflex symmetrical. CHEST: Shows normal on inspection. Breath sounds are clear bilaterally. HEART: Shows S1, S2 clear. No murmurs auscultated. ABDOMEN: Soft, nontender, nondistended, obese. No palpable organomegaly is noted. No rebound or guarding demonstrated. BACK: Shows spine grossly in the midline. Normal-appearing cervical lordotic curvature. There is slightly increased thoracic kyphosis, some minor flattening of the lumbar lordotic curvature. Lumbar paraspinous muscles show symmetrical on inspection, on palpation shows some moderate tenderness diffusely throughout the upper, middle and lower distribution of the paraspinous muscles without specific trigger points, without radiation of pain. The patient has good rotational motion of the lumbar spine, both laterally as well as extension and flexion without significant difficulty. No tenderness over the spinous processes, sacrum or sacroiliac regions. EXTREMITIES: Lower extremities show deep tendon reflexes 1+ in the patellar and tendo calcaneus tendons. Motor exam is 5 on a scale of 5 with right dorsiflexion, extension, quadriceps and hamstring flexion and 5/5 on the left. Peripheral pulses are 1+ posterior tibial. No peripheral edema is noted bilaterally. Lower extremities are warm and dry to touch, equal in color and appearance. SKIN: Shows warm and dry, good turgor. No edema. No sores, rashes or bruising throughout. Procedure: Procedure: Options were discussed with the patient. Patient will chart reviews his current medication regimen updated current review of systems updated today as well. We will proceed with a first in the series lumbar epidural steroid injection today with fluoroscopic guidance. Risks were discussed including but not limited to: Bleeding, infection, possibility of epidural hematoma and subsequent neurological compromise, dural puncture, headaches, spinal cord and/or nerve damage, side effects of steroid medication, and poor results regarding pain control. Patient understands wished to proceed. Patient will return to clinic in approximately 4 weeks for follow-up was counseled as to return appointment activity level and side effects to be aware of. Medication Injected: Med Injected: Procedure is lumbar epidural steroid injection under local anesthetic using sterile prep and drape at the L5-S1 level using C-arm fluoroscopic guidance in both AP and lateral views medications injected is 120 mg Depo-Medrol + 10 mL preservative-free normal saline and 2 mL contrast- condition at discharge is stable patient tolerated procedure well had no complications. Condition at Discharge: Condition at Discharge: Additional discharge is stable patient tolerated the procedure well and had no complications. FANNY ESPITIA MD Dec 05, 2019 12:23
== END ==
LOC: PNCL 10:54
PROVIDERS: ATTEND Anesthesiology
DX: M51.16 Intervertebral disc disorders with radiculopathy, lumbar region (principal); M50.10 Cervical disc disorder with radiculopathy, unspecified cervical region; M96.1 Postlaminectomy syndrome, not elsewhere classified; M47.892 Other spondylosis, cervical region; M19.012 Primary osteoarthritis, left shoulder; M19.011 Primary osteoarthritis, right shoulder; I10 Essential (primary) hypertension; Z88.2 Allergy status to sulfonamides; Z79.82 Long term (current) use of aspirin; Z79.899 Other long term (current) drug therapy
CPT/HCPCS: 62323; J1030; J1040; Q9965

== ENCOUNTER → 2020-05-29 | Outpatient (CLI) | payer MEDICARE ==
[2018-07-24 10:05] VITALS: BP 121/86
[~2020-05-29] MED LIST changes: -LISI-334 PO; +LISI20TA18 PO
--- NOTE | 2020-05-29 10:54 | PDOC ---
Progress Note - Pain Clinic Date of Service: DOS: DATE: 05/29/20 TIME: 10:51 Diagnosis: Dx: Lumbar radiculopathy with lumbar degenerative disc disease and lumbar postlaminectomy syndrome Cervical radiculopathy cervical degenerative disease and cervical spondylosis Bilateral shoulder joint pain with osteoarthritis History or Present Illness: HPI: 74-year-old male returns for follow-up status post lumbar epidural steroid injection x1 last seen December 05, 2019. Patient reports did very well with initially about 75% improvement now is about 40% improved still with some improvement but pain returning low back left lower extremity mostly the posterior gluteus posterior thigh posterior calf on the left side patient reports is worse with walking and standing better with sitting or laying down and worse with cold weather. Patient reports is an 8 on scale 10 is worse over the past week 5 on average 1 at its least is a 5 today. Patient reports its radiating in the low back left leg with aching pain in the back and tight in the leg and the back on and off in intensity better with sitting or laying down generally does not awaken from sleep at night. Patient reports no new motor or sensory deficits or bowel or bladder incontinence or other complaints. Physical Exam: VS: Pressure is 125/82 pulse 96 respirations 18 temperature 98.5 Height is 6 foot weight is 293 pounds PE: PHYSICAL EXAMINATION: GENERAL: The patient is awake, alert, oriented, appropriate, very pleasant demeanor HEENT: Shows normocephalic, atraumatic. Extraocular movements are intact and symmetrical. Oral cavity: Mucous membranes moist and pink. Dentition is intact. NECK: Shows anterior throat supple without palpable lymphadenopathy noted. Swallow reflex symmetrical. CHEST: Shows normal on inspection. Breath sounds are clear bilaterally, distant but no rales rhonchi wheezes auscultated. HEART: Shows S1, S2 clear. No murmurs auscultated. ABDOMEN: Soft, nontender, nondistended, obese. No palpable organomegaly is noted. No rebound or guarding demonstrated. BACK: Shows spine grossly in the midline. Normal-appearing cervical lordotic curvature. There is slightly increased thoracic kyphosis, some minor flattening of the lumbar lordotic curvature. Lumbar paraspinous muscles show symmetrical on inspection, on palpation shows some moderate tenderness diffusely throughout the upper, middle and lower distribution of the paraspinous muscles without specific trigger points, without radiation of pain. The patient has good rotational motion of the lumbar spine, both laterally as well as extension and flexion without significant difficulty. EXTREMITIES: Lower extremities show deep tendon reflexes 2+ in the patellar and tendo calcaneus tendons. Motor exam is 5 on a scale of 5 with right dorsiflexion, extension, quadriceps and hamstring flexion and 5/5 on the left. Peripheral pulses are 1 posterior tibial. No peripheral edema is noted bilaterally. Lower extremities are warm and dry to touch, equal in color and appearance. SKIN: Shows warm and dry, good turgor. No edema. No sores, rashes or bruising throughout. Procedure: Procedure: Options were discussed with the patient. Patient old chart was reviewed, his current medication regimen updated, and current review of systems updated today as well. We will proceed with a second in the series lumbar epidural steroid injection stable fluoroscopic guidance. Risks were discussed including but not limited to: Bleeding, infection, possibility of epidural hematoma and subsequent neurological compromise, dural puncture, headaches, spinal cord and/or nerve damage, side effects of steroid medication, and poor results regarding pain control. Patient understands and wished to proceed. Patient return to clinic in approximate 2 weeks for follow-up, was counseled as to return appointment activity level and side effects to be aware of. Medication Injected: Med Injected: Procedure is lumbar epidural steroid injection under local anesthetic using sterile prep and drape at the L5-S1 level using C-arm fluoroscopic guidance in both AP and lateral views medications injected is 120 mg Depo-Medrol + 10 mL preservative-free normal saline and 2 mL contrast- condition at discharge is s table patient tolerated procedure well had no complications. Condition at Discharge: Condition at Discharge: Condition at discharge stable, patient alert the procedure well and had no complications. FANNY ESPITIA MD May 29, 2020 10:54
--- NOTE | 2020-05-29 10:55 | PDOC4 ---
PROCEDURE Procedure Patient was consented for lumbar epidural steroid injection. Risks were dis cussed including but not limited to: Bleeding, infection, possibility of epidural hematoma and subsequent neurological compromise, dural puncture, headaches, spinal cord and/or nerve damage, side effects of steroid medication, and poor results regarding pain control. Patient understands and wished to proceed. Procedure is lumbar epidural steroid injection under local anesthetic using sterile prep and drape at the L5-S1 level using C-arm fluoroscopic guidance in both AP and lateral views medications injected is 120 mg Depo-Medrol + 10 mL preservative-free normal saline and 2 mL contrast- condition at discharge is stable patient tolerated procedure well had no complications. FANNY ESPITIA MD May 29, 2020 10:55
== END | disposition home or self-care (01) ==
LOC: PNCL 10:02
PROVIDERS: ATTEND Anesthesiology
DX: M51.16 Intervertebral disc disorders with radiculopathy, lumbar region (principal); M50.10 Cervical disc disorder with radiculopathy, unspecified cervical region; M96.1 Postlaminectomy syndrome, not elsewhere classified; M47.22 Other spondylosis with radiculopathy, cervical region; M19.012 Primary osteoarthritis, left shoulder; M19.011 Primary osteoarthritis, right shoulder; Z79.82 Long term (current) use of aspirin; Z79.899 Other long term (current) drug therapy; Z88.2 Allergy status to sulfonamides
CPT/HCPCS: 62323; J1030; J1040; Q9965

== ENCOUNTER → 2020-12-17 | Outpatient (CLI) | payer MEDICARE ==
[2018-07-24 10:05] VITALS: BP 121/86
[~2020-12-17] MED LIST changes: +CYCL10TA19 PO; -CYCL10TA2 PO; +EMPA10TA PO; -IOHEXOL 180 MG/ML 10 ML VIAL. ONE; -methylPREDNISolone ACETATE 40 MG/ML VIAL. ONE; -methylPREDNISolone ACETATE 80 MG/ML VIAL. ONE
--- NOTE | 2020-12-17 15:09 | PDOC ---
Progress Note - Pain Clinic Date of Service: DOS: DATE: 12/17/20 TIME: 15:05 Diagnosis: Dx: Lumbar radiculopathy with lumbar degenerative disease and lumbar postlaminectomy syndrome Cervical radiculopathy with cervical degenerative disease and cervical spondylosis Bilateral shoulder acromioclavicular joint pain with osteoarthritis History or Present Illness: HPI: 35-year-old male returns for follow-up status post lumbar epidural steroid injection x2. Patient reports about 20 to 30% improvement but not lasting very long and over time the epidural injections have been less and less effective patient reports still significant pain in the low back into the left lower extremity posterior gluteus posterior thigh posterior calf on the left side primarily and across the low back as well but mostly in the left leg patient reports a 9 on scale 10 is worse over the past week 6 on average 1 its least and is a 6 today. Patient reports is aching dull tight shooting radiating on and off in intensity but worse with walking standing changing positions getting up from seated position disturbing sleep about every 2-3 hours as well. Patient reports he has been doing basically nothing at home as everything hurts to get around today he is unable to travel with not able to drive his car comfortably is not able to even make short distances to the store and back. Patient is doing some stretching and strength exercises although is not significant helpful as well. Physical Exam: VS: Blood pressure is 105/68 pulse 93 respirations 16 temperature 98.9 F weight is 289 pounds PE: PHYSICAL EXAMINATION: GENERAL: The patient is awake, alert, oriented, appropriate, very pleasant in demeanor, patient accompanied by his spouse. HEENT: Shows normocephalic, atraumatic. Extraocular movements are intact and symmetrical. Oral cavity: Mucous membranes moist and pink. NECK: Shows anterior throat supple without palpable lymphadenopathy noted. Swallow reflex symmetrical. CHEST: Shows normal on inspection. Breath sounds are clear bilaterally. HEART: Shows S1, S2 clear. No murmurs auscultated. ABDOMEN: Soft, nontender, nondistended, obese. No palpable organomegaly is noted. BACK: Shows spine grossly in the midline. Normal-appearing cervical lordotic curvature. There is slightly increased thoracic kyphosis, some minor flattening of the lumbar lordotic curvature, with well-healed surgical scar. Lumbar paraspinous muscles show symmetrical on inspection, on palpation shows some moderate tenderness diffusely throughout the upper, middle and lower distribution of the paraspinous muscles, but without specific trigger points, without radiation of pain. The patient has good rotational motion of the lumbar spine, both laterally as well as extension and flexion without significant difficulty. EXTREMITIES: Lower extremities show deep tendon reflexes 2+ in the patellar and tendo calcaneus tendons. Motor exam is 4 on a scale of 5 with right dorsiflexion, extension, quadriceps and hamstring flexion and 4/5 on the left. Peripheral pulses are 1 posterior tibial. No peripheral edema is noted bilaterally. Lower extremities are warm and dry to touch, equal in color and appearance. SKIN: Shows warm and dry, good turgor. No edema. No sores, rashes or bruising throughout. Procedure: Procedure: Options were discussed with the patient. Patient's old chart was reviewed his current medication regimen updated current review of systems updated today as well. We discussed a spinal cord stimulator this may be a good option for him he has had surgical decompression has had evaluation with neurosurgery without recommendation for further surgery and recommending conservative measures as well as lumbar epidural steroid injections oral analgesics which are no longer significantly helpful as he had been in the past. Patient is interested was given information regarding the spinal cord stimulators and their details. We will have psychiatric evaluation next and preauthorize patient for spinal cord stimulator temporary trial. Medication Injected: Med Injected: None Condition at Discharge: Condition at Discharge: Condition at discharge is stable. FANNY ESPITIA MD Dec 17, 2020 15:09
== END | disposition home or self-care (01) ==
LOC: PNCL 14:09
PROVIDERS: ATTEND Anesthesiology
DX: M51.16 Intervertebral disc disorders with radiculopathy, lumbar region (principal); M96.1 Postlaminectomy syndrome, not elsewhere classified; G89.29 Other chronic pain; M50.10 Cervical disc disorder with radiculopathy, unspecified cervical region; M47.892 Other spondylosis, cervical region; Z98.890 Other specified postprocedural states; Z79.899 Other long term (current) drug therapy
CPT/HCPCS: 99212; G0463